=== PATIENT | female | born 1985 | race Caucasian/White ===

== ENCOUNTER 2018-01-30 05:12 | Inpatient (IN) | payer BC ==
[~2018-01-30] VITALS: Ht 170.2 cm; Wt 89.0 kg
[~2018-01-30 05:12] MED LIST: IBUP-1222 PO; MECL25TA4 PO; OXYC-302 PO; SENN-52 PO
[2018-01-30] MEDS ORDERED: LACTATED RINGERS 1,000 ML IV SCH ×2 (05:23→05:30)
[2018-01-30] MEDS ORDERED: OXYTOCIN 30U/ 0.9% NaCL 500ML 500 ML IV SCH (05:23)
[2018-01-30] MEDS ORDERED: LACTATED RINGERS 1,000 ML IVBOLUS ONE (05:30)
[2018-01-30] MEDS ORDERED: SODIUM CITRATE/CITRIC ACID 30 ML UDC PO ONE (05:30)
[2018-01-30] MEDS ORDERED: METOCLOPRAMIDE 5 MG/ML, 2ML IV ONE (05:30)
[2018-01-30 06:07] LABS: BASOPHILS # (AUTO) 0.04 x10^3/uL (0-0.1); BASOPHILS % (AUTO) 0 % (0-1); EOSINOPHILS # (AUTO) 0.07 x10^3/uL (0-0.4); EOSINOPHILS % (AUTO) 1 % (1-7); LYMPHOCYTES # (AUTO) 2.49 x10^3/uL (1-3.4); LYMPHOCYTES % (AUTO) 22 % (22-44); MD NO; MEAN CORPUSCULAR HEMOGLOBIN 25.8 pg (27.0-34.8); MEAN CORPUSCULAR HGB CONC 33.3 g/dL (32.4-35.8); MEAN CORPUSCULAR VOLUME 77.5 fL (80-100); MEAN PLATELET VOLUME 10.1 fL (7.4-10.4); MONOCYTES # (AUTO) 0.79 x10^3/uL (0.2-0.8); MONOCYTES % (AUTO) 7 % (2-9); NEUTROPHILS # (AUTO) 8.12 x10^3/uL (1.8-6.8); NEUTROPHILS % (AUTO) 71 % (42-75); PLATELET COUNT 255 x10^3/uL (130-400); RED BLOOD COUNT 4.17 x10^6/uL (3.82-5.3); RED CELL DISTRIBUTION WIDTH 14.4 % (9.6-15.2)
[2018-01-30] MEDS ORDERED: NEWBORN KIT ONE (06:27)
[2018-01-30] MEDS ORDERED: METOCLOPRAMIDE 5 MG/ML, 2ML ONE (06:28)
[2018-01-30] MEDS ORDERED: SODIUM CITRATE/CITRIC ACID 30 ML UDC ONE (06:28)
[2018-01-30] MEDS ORDERED: MISOPROSTOL 200 MCG TABLET ONE (07:22)
[2018-01-30] MEDS ORDERED: OXYTOCIN 30U/ 0.9% NaCL 500ML 500 ML ONE (07:23)
[2018-01-30] MEDS ORDERED: PHENYLEPHRINE 10 MG/ML ONE (07:24)
[2018-01-30] MEDS ORDERED: DEXAMETHASONE 4 MG/ML, 1ML ONE (07:24)
[2018-01-30] MEDS ORDERED: ONDANSETRON 2MG/ML, 2ML ONE (07:24)
[2018-01-30] MEDS ORDERED: CEFAZOLIN 1,000 MG ONE (07:24)
[2018-01-30] MEDS ORDERED: FENTANYL PF 100 MCG/2ML ONE ×2 (07:24→09:55)
[2018-01-30] MEDS ORDERED: KETOROLAC 30 MG/1 ML ONE (07:24)
[2018-01-30] MEDS ORDERED: EPHEDRINE 50 MG/ML, 1ML ONE (07:24)
[2018-01-30] MEDS ORDERED: OXYTOCIN 10 UNITS/ML, 1ML ONE (07:24)
[2018-01-30] MEDS ORDERED: ALBUTEROL SULFATE 2.5 MG/3 ML NPPB PRN (07:30)
[2018-01-30] MEDS ORDERED: OXYcodone 5 MG/5 ML ORAL.SOL UDC PO PRN (07:30)
[2018-01-30] MEDS ORDERED: LABETALOL 5MG/ML, 20ML IV PRN (07:30)
[2018-01-30] MEDS ORDERED: PROMETHAZINE 25 MG/ML, 1ML IV PRN (07:30)
[2018-01-30] MEDS ORDERED: HYDROcodone/APAP 7.5-325MG/15ML UDC PO PRN (07:30)
[2018-01-30] MEDS ORDERED: HYDROmorphone 1 MG/ML, 1ML IV PRN (07:30)
[2018-01-30] MEDS ORDERED: EPHEDRINE 50 MG/ML, 1ML IVPush PRN (07:30)
[2018-01-30] MEDS ORDERED: MEPERIDINE/PF 25MG/0.5ML IVPush PRN (07:30)
[2018-01-30] MEDS ORDERED: hydrALAzine 20 MG/ML, 1ML IV PRN (07:30)
[2018-01-30] MEDS ORDERED: ONDANSETRON 2MG/ML, 2ML IVPush PRN (07:30)
[2018-01-30] MEDS: OXYTOCIN 30U/ 0.9% NaCL 500ML 500 ML IV SCH ×2 (07:37→17:37)
[2018-01-30] MEDS: LACTATED RINGERS 1,000 ML IV SCH ×5 (07:37→23:37)
[2018-01-30] MEDS ORDERED: MISOPROSTOL 200 MCG TABLET PR PRN (08:00)
[2018-01-30] MEDS ORDERED: HEMORRHOIDAL SUPP.RECT PR PRN (08:00)
[2018-01-30] MEDS ORDERED: METHYLERGONOVINE 0.2 MG/ML IM PRN (08:00)
[2018-01-30] MEDS ORDERED: ONDANSETRON 2MG/ML, 2ML IV PRN (08:00)
[2018-01-30] MEDS ORDERED: ACETAMINOPHEN 325 MG TABLET PO PRN (08:00)
[2018-01-30] MEDS ORDERED: HEMORRHOIDAL OINT, 28 GM (PREP H) RC PRN (08:00)
[2018-01-30] MEDS ORDERED: morphine SULFATE 10 MG/ML, 1ML IVPush PRN ×2 (08:00)
[2018-01-30] MEDS ORDERED: CARBOPROST TROMETHAMINE 250 MCG/ML, 1ML IM PRN (08:00)
[2018-01-30] MEDS: PRENATAL VIT/IRON/FA 1 EACH TABLET PO SCH (09:00)
[2018-01-30] MEDS ORDERED: FENTANYL PF 100 MCG/2ML IVPush PRN (10:00)
[2018-01-30] MEDS: FENTANYL PF 100 MCG/2ML IV PRN ×2 (10:05→10:26)
[2018-01-30 11:30] VITALS: BP 120/72
[2018-01-30] MEDS: OXYcodone/APAP 5/325MG TABLET PO PRN ×4 (11:41→21:29)
[2018-01-30] MEDS: KETOROLAC 30 MG/1 ML IVPush SCH ×2 (15:40→21:29)
[2018-01-30 16:07] LABS: MEAN CORPUSCULAR HEMOGLOBIN 25.4 pg (27.0-34.8); MEAN CORPUSCULAR HGB CONC 32.4 g/dL (32.4-35.8); MEAN CORPUSCULAR VOLUME 78.5 fL (80-100); MEAN PLATELET VOLUME 10.1 fL (7.4-10.4); PLATELET COUNT 282 x10^3/uL (130-400); RED BLOOD COUNT 4.33 x10^6/uL (3.82-5.3); RED CELL DISTRIBUTION WIDTH 14.4 % (9.6-15.2)
[2018-01-30 16:30] VITALS: BP 122/75
[2018-01-30 16:30] LABS: BASOPHILS # (AUTO) 0.01 x10^3/uL (0-0.1); BASOPHILS % (AUTO) 0 % (0-1); EOSINOPHILS % (AUTO) 0 % (1-7); LYMPHOCYTES # (AUTO) 1.25 x10^3/uL (1-3.4); LYMPHOCYTES % (AUTO) 7 % (22-44); MD MORPH REVIEW ONLY; MONOCYTES % (AUTO) 2 % (2-9); NEUTROPHILS # (AUTO) 16.67 x10^3/uL (1.8-6.8); NEUTROPHILS % (AUTO) 92 % (42-75)
[2018-01-30 16:31] LABS: MICROCYTOSIS 1+; TOXIC GRAN 1+
[2018-01-30 16:32] LABS: <PLATELET ESTIMATE> ADEQUATE; <PLT MORPHOLOGY> NORMAL PLT MORPH; HYPOCHROMIA 1+
[2018-01-30 16:33] LABS: POLYCHROMASIA 1+
[2018-01-30 20:00] VITALS: BP 114/71
[2018-01-31 00:35] VITALS: BP 129/72
[2018-01-31] MEDS: OXYcodone/APAP 5/325MG TABLET PO PRN ×5 (01:24→20:31)
[2018-01-31] MEDS: OXYTOCIN 30U/ 0.9% NaCL 500ML 500 ML IV SCH ×3 (03:37→23:37)
[2018-01-31] MEDS: LACTATED RINGERS 1,000 ML IV SCH ×6 (03:37→23:37)
[2018-01-31] MEDS: KETOROLAC 30 MG/1 ML IVPush SCH ×3 (03:47→16:35)
[2018-01-31 04:10] VITALS: BP 109/72
[2018-01-31] MEDS: DOCUSATE 100 MG CAPSULE PO PRN ×2 (08:29→20:05)
[2018-01-31] MEDS: PRENATAL VIT/IRON/FA 1 EACH TABLET PO SCH (08:31)
[2018-01-31 08:52] VITALS: BP 111/73
[2018-01-31 17:35] LABS: BASOPHILS # (AUTO) 0.04 x10^3/uL (0-0.1); BASOPHILS % (AUTO) 0 % (0-1); EOSINOPHILS # (AUTO) 0.09 x10^3/uL (0-0.4); EOSINOPHILS % (AUTO) 1 % (1-7); LYMPHOCYTES # (AUTO) 2.86 x10^3/uL (1-3.4); LYMPHOCYTES % (AUTO) 24 % (22-44); MD NO; MEAN CORPUSCULAR HEMOGLOBIN 25.8 pg (27.0-34.8); MEAN CORPUSCULAR VOLUME 78.1 fL (80-100); MEAN PLATELET VOLUME 9.8 fL (7.4-10.4); MONOCYTES # (AUTO) 0.74 x10^3/uL (0.2-0.8); MONOCYTES % (AUTO) 6 % (2-9); NEUTROPHILS # (AUTO) 8.17 x10^3/uL (1.8-6.8); NEUTROPHILS % (AUTO) 69 % (42-75); PLATELET COUNT 267 x10^3/uL (130-400); RED BLOOD COUNT 3.93 x10^6/uL (3.82-5.3); RED CELL DISTRIBUTION WIDTH 14.6 % (9.6-15.2)
[2018-01-31 20:05] VITALS: BP 115/71
[2018-01-31] MEDS: IBUPROFEN 600 MG TABLET PO PRN (20:05)
[2018-02-01] MEDS: OXYcodone/APAP 5/325MG TABLET PO PRN ×3 (00:29→13:58)
[2018-02-01] MEDS: IBUPROFEN 600 MG TABLET PO PRN ×2 (06:53→20:02)
[2018-02-01 07:10] VITALS: BP 95/62
[2018-02-01] MEDS: PRENATAL VIT/IRON/FA 1 EACH TABLET PO SCH (09:09)
[2018-02-01] MEDS: DOCUSATE 100 MG CAPSULE PO PRN ×2 (09:09→20:02)
[2018-02-01 21:00] VITALS: BP 118/75
[2018-02-02] MEDS: OXYcodone/APAP 5/325MG TABLET PO PRN ×3 (00:08→11:36)
[2018-02-02] MEDS: IBUPROFEN 600 MG TABLET PO PRN ×2 (01:38→07:26)
[2018-02-02 07:15] VITALS: BP 105/71
[2018-02-02] MEDS: PRENATAL VIT/IRON/FA 1 EACH TABLET PO SCH (07:15)
[2018-02-02] MEDS: DOCUSATE 100 MG CAPSULE PO PRN (07:26)
[2018-02-02 13:42] LABS: BASOPHILS # (AUTO) 0.04 x10^3/uL (0-0.1); BASOPHILS % (AUTO) 0 % (0-1); EOSINOPHILS # (AUTO) 0.17 x10^3/uL (0-0.4); EOSINOPHILS % (AUTO) 2 % (1-7); LYMPHOCYTES # (AUTO) 2.23 x10^3/uL (1-3.4); LYMPHOCYTES % (AUTO) 22 % (22-44); MD NO; MEAN CORPUSCULAR HEMOGLOBIN 26.1 pg (27.0-34.8); MEAN CORPUSCULAR HGB CONC 33.1 g/dL (32.4-35.8); MEAN CORPUSCULAR VOLUME 78.7 fL (80-100); MEAN PLATELET VOLUME 9.3 fL (7.4-10.4); MONOCYTES # (AUTO) 0.69 x10^3/uL (0.2-0.8); MONOCYTES % (AUTO) 7 % (2-9); NEUTROPHILS # (AUTO) 7.27 x10^3/uL (1.8-6.8); NEUTROPHILS % (AUTO) 70 % (42-75); PLATELET COUNT 337 x10^3/uL (130-400); RED BLOOD COUNT 4.33 x10^6/uL (3.82-5.3); RED CELL DISTRIBUTION WIDTH 14.8 % (9.6-15.2)
== END 2018-02-02 17:02 | disposition home or self-care (01) | DRG 765 ==
LOC: LDIP 05:12 → 2NW 10:57
PROVIDERS: ADMIT Obstetrics & Gynecology; ATTEND Obstetrics & Gynecology
PROC: 10D00Z1 Extraction of Products of Conception, Low, Open Approach (ICD-10-PCS; principal; 2018-01-30)
DX: O34.211 Maternal care for low transverse scar from previous cesarean delivery (principal); O22.43 Hemorrhoids in pregnancy, third trimester; Z37.0 Single live birth; O40.3XX0 Polyhydramnios, third trimester, not applicable or unspecified; Z3A.39 39 weeks gestation of pregnancy
CPT/HCPCS: 36415; 85025; 86850; 86900; J0690; J1100; J1885; J2405; J3010; J2370; J2590; J2765; J7120